=== PATIENT | female | born 1975 | race Caucasian/White ===

== ENCOUNTER 2020-02-21 21:19 | Emergency (ER) | payer SELFPAY ==
[2020-02-21] MEDS ORDERED: HYDROCODONE/ACETAMINOPHEN 10-325 MG TABLET PO ONE (22:46)
[2020-02-21] MEDS ORDERED: ONDANSETRON 4 MG TAB.RAPDIS PO ONE (22:46)
[2020-02-21] MEDS ORDERED: BACITRACIN ZINC OINTMENT 15 GM TP ONE (22:46)
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
[2020-02-22 00:11] VITALS: BP 130/75
== END 2020-02-22 00:21 | disposition home or self-care (01) ==
LOC: ER 21:19
DX: T23.261A Burn of second degree of back of right hand, initial encounter (principal); T23.262A Burn of second degree of back of left hand, initial encounter; T23.041A Burn of unspecified degree of multiple right fingers (nail), including thumb, initial encounter; T31.0 Burns involving less than 10% of body surface; X08.8XXA Exposure to other specified smoke, fire and flames, initial encounter
CPT/HCPCS: 99283; J3490; S0119